=== PATIENT | female | born 2000 | race Two or more races ===

== ENCOUNTER 2022-06-07 21:37 | Emergency (ER) | payer MEDICAID, OTHER ==
[~2022-06-07] VITALS: Ht 160 cm; Wt 59.5 kg
[2022-06-07 22:21] LABS: Urine Bacteria FEW /hpf (None Seen); Urine Blood Negative /uL (Negative); Urine WBC 6 /hpf (0 - 5)
[2022-06-07] MEDS ORDERED: ACETAMINOPHEN 325 MG TAB PO ONE (22:30)
[2022-06-07 23:22] VITALS: BP 111/63
== END 2022-06-07 23:24 | disposition home or self-care (01) ==
LOC: ER 21:37
DX: O26.891 Other specified pregnancy related conditions, first trimester (principal); R10.2 Pelvic and perineal pain; Z3A.13 13 weeks gestation of pregnancy; Z88.1 Allergy status to other antibiotic agents
CPT/HCPCS: 81001